=== PATIENT | male | born 1990 | race Caucasian/White ===

== ENCOUNTER 2018-01-23 23:37 | Emergency (ER) | payer MEDICAID ==
[~2018-01-23] VITALS: Ht 170.2 cm; Wt 70.3 kg
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
--- NOTE | 2018-01-23 23:40 | NUR ---
SUMIT HERNANDEZ ARRIVED AND IS AT THE BEDSIDE SPEAKING TO THE PT.
--- NOTE | 2018-01-23 23:45 | NUR ---
PT LEFT FOR CT VIA [facility]. NO CARLOZ HERNANDEZ LEFT.
--- NOTE | 2018-01-23 23:53 | NUR ---
PT RETURNED FROM CT.
[2018-01-23] MEDS ORDERED: HYDROCODONE/APAP 5/325MG 1 EACH TABLET ONE (23:56)
[2018-01-23] MEDS ORDERED: IBUPROFEN 400 MG TABLET ONE (23:56)
[2018-01-23] MEDS ORDERED: TDAP [DIPH/PERTUSSIS/TET] 0.5 ML VIAL IM ONE (23:56)
[2018-01-24] MEDS ORDERED: HYDROCODONE/APAP 5/325MG 1 EACH TABLET PO ONE
[2018-01-24] MEDS ORDERED: IBUPROFEN 400 MG TABLET PO ONE
[2018-01-24] MEDS ORDERED: TDAP [DIPH/PERTUSSIS/TET] 0.5 ML VIAL IM ONE
--- NOTE | 2018-01-24 00:02 | NUR ---
PT REC'D MEDICATION ORDERED. PT REFUSED TDAP AT THIS TIME. PT STATED THAT HE WILL TAKE IT LATER.
--- NOTE | 2018-01-24 00:21 | NUR ---
PT'S FAMILY IS AT THE BEDSIDE.
[2018-01-24] MEDS ORDERED: MORPHINE SULFATE INJ 2 MG/ML DISP.SYRIN IV ONE (00:30)
[2018-01-24] MEDS ORDERED: ONDANSETRON HCL/PF 4 MG/2 ML VIAL IV ONE (00:30)
[2018-01-24] MEDS ORDERED: ONDANSETRON HCL/PF 4 MG/2 ML VIAL ONE (00:32)
[2018-01-24] MEDS ORDERED: HYDROMORPHONE 1 MG/1 ML DISP.SYRIN ONE ×2 (00:35→00:54)
--- NOTE | 2018-01-24 00:44 | NUR ---
CALLED [facility] RE: CT FACE READ FOR DR. PAL
[2018-01-24] MEDS: HYDROMORPHONE 1 MG/1 ML DISP.SYRIN IV ONE ×2 (00:50→00:53)
[2018-01-24 01:00] LABS: BASOPHILS # (AUTO) 0.1 /CMM (0.0-0.2); BASOPHILS % (AUTO) 0.3 % (0.0-2.0); EOSINOPHILS % (AUTO) 0.3 % (0.0-6.0); HEMATOCRIT 49 % (39-51); HEMOGLOBIN 16.3 g/dL (13.5-17.5); LYMPHOCYTES # (AUTO) 1.6 /CMM (0.8-4.8); LYMPHOCYTES % (AUTO) 7.2 % (20.0-44.0); MEAN CORPUSCULAR HGB CONC 33 g/dl (31.0-36.0); MEAN CORPUSCULAR VOLUME 87 fL (80-96); MONOCYTES # (AUTO) 1.2 /CMM (0.1-1.30); MONOCYTES % (AUTO) 5.4 % (2.0-12.0); NEUTROPHILS # (AUTO) 19.4 /CMM (1.8-8.9); NEUTROPHILS % (AUTO) 86.8 % (43.0-81.0); PLATELET COUNT (AUTO) 308 /CMM (150-450); RED BLOOD CELL COUNT(AUTO) 5.62 MIL/uL (4.5-6.0); WHITE BLOOD COUNT (AUTO) 22.3 K/uL (4.3-11.0)
[2018-01-24] MEDS ORDERED: IV NS 0.9% 1,000 ML BAG IV ONE (01:00)
[2018-01-24] MEDS ORDERED: HYDROMORPHONE INJ 2 MG/ML DISP.SYRIN IV ONE (01:00)
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
--- NOTE | 2018-01-24 01:00 | NUR ---
CXR IN PROGRESS AT THE BEDSIDE.
--- NOTE | 2018-01-24 01:08 | NUR ---
Fabienne called for ALS transport. Trip#[id number]
[2018-01-24 01:11] LABS: CALCIUM, SERUM 8.8 mg/dL (8.5-10.1); CARBON DIOXIDE 24 mmol/L (21-32); CHLORIDE 101 mmol/L (98-107); CREATININE 0.9 mg/dL (0.6-1.3); GLUCOSE 123 mg/dL (74-106); POTASSIUM 3.4 mmol/L (3.5-5.1); SODIUM SERUM 138 mmol/L (136-145); UREA NITROGEN, BLOOD 17 mg/dL (7-18)
--- NOTE | 2018-01-24 01:15 | NUR ---
TRANSFER PAPERS ARE SIGNED AND IN THE CHART.
[2018-01-24 01:19] LABS: ALANINE AMINOTRANSFERASE 41 U/L (12-78); ALBUMIN 3.9 g/dL (3.4-5.0); ALKALINE PHOSPHATASE 113 U/L (46-116); ASPARTATE AMINOTRANSFERASE 20 U/L (15-37); BAND % (MANUAL) 1 % (0.0-5.0); BILIRUBIN,DIRECT 0.1 mg/dL (0.0-0.2); BILIRUBIN,TOTAL 0.4 mg/dL (0.2-1.0); LYMPHOCYTES % (MANUAL) 10 % (16-48); MONOCYTES % (MANUAL) 5 % (0-11.0); NEUTROPHILS % (MANUAL) 84 (42-76); TOTAL PROTEIN, SERUM 7.6 g/dL (6.4-8.2)
[2018-01-24 01:20] LABS: ALCOHOL, BLOOD < 3 mg/dL (0-0)
[2018-01-24] MEDS ORDERED: FENTANYL PF 100MCG/2ML AMPUL ONE (01:23)
[2018-01-24] MEDS ORDERED: FENTANYL PF 100MCG/2ML AMPUL IV ONE (01:30)
--- NOTE | 2018-01-24 02:00 | NUR ---
CALLING [facility] TRANSFER HOTLINE RE: PT BEING ACCEPTED BY ANOTHER MD.
--- NOTE | 2018-01-24 02:02 | NUR ---
DID NOT MAKE A CALL TO [facility]
--- NOTE | 2018-01-24 02:08 | NUR ---
Ambulnz ALS eta 1 hr
--- NOTE | 2018-01-24 02:08 | NUR ---
Pt accepted by Dr Stefan Masterson [facility].
[2018-01-24] MEDS ORDERED: CT SWABBABLE VALVE TRANS SET 1 EA INFUS.SET MC ONE (02:10)
[2018-01-24] MEDS ORDERED: IOHEXOL-350 100 ML VIAL IV ONE (02:10)
--- NOTE | 2018-01-24 02:25 | NUR ---
CHERYLE COBOS FROM [facility] CALLED AND DR. ROGERS IS SPEAKING TO DR. PAL RE: THE PT.
--- NOTE | 2018-01-24 02:26 | NUR ---
PT APPEARS TO BE RESTING COMFORTABLY WITH HIS FAMILY AT THE BEDSIDE.
--- NOTE | 2018-01-24 02:35 | NUR ---
CALLING REPORT TO [facility].
--- NOTE | 2018-01-24 02:39 | NUR ---
Call from Guido Masterson [facility] transfer center. Pt accepted by Dr Chang to [facility] ER. # for report [phone]
--- NOTE | 2018-01-24 02:44 | NUR ---
[facility]SPORT ARRIVED REPORT.
--- NOTE | 2018-01-24 02:47 | NUR ---
REPORT GIVEN TO CHERYLE HYLTON [facility] AND REPORT GIVEN TO CHERYLE GUERIN AT [facility].
[2018-01-24 02:48] VITALS: BP 150/94
--- NOTE | 2018-01-24 02:54 | NUR ---
pt did not receive Ancef 1 gm as it is not available.
[2018-01-24] MEDS ORDERED: CEFAZOLIN 1 GM in IV D5W 50 ML IV ONE (03:00)
== END 2018-01-24 03:03 ==
LOC: ER 23:40
DX: S02.413A LeFort III fracture, initial encounter for closed fracture (principal); S02.411A LeFort I fracture, initial encounter for closed fracture; S02.412A LeFort II fracture, initial encounter for closed fracture; S02.2XXA Fracture of nasal bones, initial encounter for closed fracture; S05.12XA Contusion of eyeball and orbital tissues, left eye, initial encounter; R51 Headache; Y04.8XXA Assault by other bodily force, initial encounter; Y93.89 Activity, other specified; Y92.89 Other specified places as the place of occurrence of the external cause; Y99.8 Other external cause status
CPT/HCPCS: 36415; 70450-TC; 70486-TC; 71045-TC; 80048-TC; 80076-TC; 85025-TC; 85730-TC; 90715; A4606; G0480; J0690; J1170; J2405; J3010; J7030; J7060; Q9967; Z7610